=== PATIENT | female | born 1970 | race Caucasian/White ===

== ENCOUNTER 2017-10-28 01:12 | Emergency (ER) | payer MEDICAID ==
[2017-10-28] MEDS ORDERED: TDAP ADULT 0.5 ML INJ (BOOSTRIX) IM ONE (01:36)
--- NOTE | 2017-10-28 01:36 | EDPHY ---
H & P Time Seen by Provider: 10/28/17 01:18 HPI/ROS: Chief complaint: Finger laceration HPI: Sustained a laceration to the tip of the left index finger while cutting chicken with a kitchen knife. While the kitchen knife was clean for say she had been using it on raw chicken. Right Handed Injury of the left index, from kitchen knife that had been contaminated with raw poultry, chicken. This happened at home, occurring just ART PREPARATOR Reports there is no numbness or loss of sensation. 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 Well-nourished. No odor of alcohol. Nontoxic. Afebrile. Extremity: There is a 1 cm, linear laceration that is full thickness to the tip of the left index . Function: Without signs of tendon dysfunction NV Status: Intact CMS: Intact Constitutional: Initial Vital Signs Temperature (C) 36.7 C 10/28/17 01:27 Heart Rate 82 10/28/17 01:27 Respiratory Rate 14 10/28/17 01:27 Blood Pressure 164/95 H 10/28/17 01:27 O2 Sat (%) 92 10/28/17 01:27 O2 Delivery Mode Room Air Allergies/Adverse Reactions: adhesives Allergy (Uncoded 10/28/17 01:26) Home Medications: Medication Instructions Recorded Wellbutrin 100mg (*) 10/28/17 Zoloft 50mg (*) 10/28/17 Medical Decision Making Procedures: Procedure: Laceration repair. Laceration Repair: - Options presented to patient, consented to repair. - After skin prep with chloraseptic the wound was anesthesized with digital block with lidocaine 1 % without epinephrine - the wound was Cleansed with irrigation by Tech However, we had to stop at that point. She really was stressed out at the whole procedure and was feeling much more than typically in the digit itself. She had noted that she had gone through a very stressful time which also me became apparent that after a year's worth of Percocet therapy for her bad hip she was in a very dark place taking 4 months to wean. Nonetheless, she herself suggested Klonopin 0.5 mg, after initially declining Ativan, as that has worked in her past for her panic attack. That worked very well as well as a re-block of the finger as below: Reinfilltration of the left index finger in a ring block fashion with 0.5% Marcaine without epinephrine and a 15 min weight yielded excellent anesthesia. - The length of the wound was 1 cm.Inspection and exploration of the wound, with gloved finger and forceps, prior to closure revealed no evidence of foreign body and no involvement of deeper structures. - Closure was obtained using 5 0 nylon. - At the end of the procedure, wound edges were well approximated and hemostasis was achieved. - after the Klonopin and the additional digital block infiltration of 0.5% Marcaine, she tolerated procedure well. Differential Diagnosis: Diagnostic considerations include, but are not limited to, the following: Laceration, retained FB, tendon injury, fracture. - Data Points Medications Given: Discontinued Medications Clonazepam (Klonopin) 0.5 mg PO EDNOW ONE Stop: 10/28/17 02:00 Last Admin: 10/28/17 02:02 Dose: 0.5 mg Departure - Departure Disposition: Home, Routine, Self-Care Clinical Impression: Panic attack as reaction to stress Finger laceration Qualifiers: Encounter type: initial encounter Finger: index finger Damage to nail status: without damage Foreign body presence: without foreign body Laterality: left Qualified Code(s): S61.211A - Laceration without foreign body of left index finger without damage to nail, initial encounter Condition: Good Instructions: Laceration (ED) Additional Instructions: Keep the wound clean and dry. Wearing a bandage is best so as to pad the area. Sutures out in 8-9 days - that may be done here or at her family doctor's office.
[2017-10-28] MEDS ORDERED: clonazePAM 0.5 MG TAB PO ONE (01:59)
[2017-10-28 03:08] VITALS: BP 148/86
== END 2017-10-28 03:05 | disposition home or self-care (01) ==
LOC: CED 01:12
PROC: 0HQGXZZ Repair Left Hand Skin, External Approach (ICD-10-PCS; principal; 2017-10-28)
DX: S61.211A Laceration without foreign body of left index finger without damage to nail, initial encounter (principal); F41.0 Panic disorder [episodic paroxysmal anxiety]; Z23 Encounter for immunization; W26.0XXA Contact with knife, initial encounter; Y92.010 Kitchen of single-family (private) house as the place of occurrence of the external cause

== ENCOUNTER 2017-11-08 15:19 | Emergency (ER) | payer MEDICAID ==
--- NOTE | 2017-11-08 16:39 | EDPHY ---
H & P Time Seen by Provider: 11/08/17 15:46 HPI/ROS: This patient complains of panic attacks. She reports that she has intermittently had them over the last 10 or more years but has had increased frequency of panic attacks over the past 2 weeks. She was seen at [facility] last week for panic attack in the emergency department and she reports that she had normal electrolytes and TSH blood count at that time but does not have specific values. She attributes her increase frequency of panic attacks to increased social stressors recently related to ex and a custody marti. Here now in joint custody but she still feeling emotional stress from this. Also, her bilateral father is no longer in contact with family and she is upset by this. She is accompanied today by her mother who drove her here by private vehicle for further evaluation of her symptoms. She describes the panic attacks as feeling short of breath, feeling like her entire body is vibrating, accompanied with dyspnea at times agoraphobia. Her mother witnessed 1 of these episodes and states that it looks like she also hold her breath during the episode. ROS: No fevers or chills. No other constitutional symptoms HEENT: No URI symptoms Pulmonary: No respiratory distress. No pleuritic pain. No coughing. Cardiovascular: No chest pain or lightheadedness Neuro: No headache currently. She occasionally gets frontal headaches associated with anxiety but currently no headache. No numbness tingling focal weakness or confusion. GI: No abdominal pain. No nausea vomiting or diarrhea. : No complaints. Last menstrual period was normal timing 2 weeks ago. Psychiatric: As per HPI. 10 point ROS is otherwise negative. Past Medical/Surgical History: Mixed depression anxiety on Wellbutrin for the last 8 years in Zoloft in addition for the last for 5 years. They started Zoloft in addition because they did feel she was having significant benefit from Wellbutrin alone. Social History: She admits daily alcohol use -3 glasses of white wine per evening. Patient reports that for the past 6 months she has had marijuana in the evening on a daily basis in attempt to help with her anxiety and she reports that she is using hybrid of indica and sattiva No other drug use. She has a 7-year-old girl Bernadette with joint custody with her ex-. She is living with her mother an [place]. She is not currently working outside of the home . Smoking Status: Current every day smoker Physical Exam: Vital signs normal exception of hypertension 164/106 General Appearance: Pleasant 47-year-old female mildly obese Alert, no distress. Eyes: Pupils equal and round no pallor or injection. ENT, Mouth: Mucous membranes moist. Respiratory: There are no retractions, lungs are clear to auscultation. Cardiovascular: Regular rate and rhythm. No murmur gallop or rub Gastrointestinal: Abdomen is soft and nontender, no masses, bowel sounds normal. Neurological: GCS 15 with no focal deficits. Skin: Warm and dry, no rashes. Musculoskeletal: Neck is supple nontender. Extremities are symmetrical, full range of motion. Psychiatric: Mood and affect normal except for brief tearfulness wall describing her current social stressors. She maintains logical thought content. She has no pressured speech. No flight of ideas. No psychotic symptoms. She denies suicidal ideation or homicidal ideation. DIFFERENTIAL DIAGNOSIS: After history and physical exam differential diagnosis was considered for anxiety/panic, polysubstance abuse, doubt functional thyroid disease contributing to her symptoms given oral report of normal TSH last week. Constitutional: Initial Vital Signs Temperature (C) 99.5 C H 11/08/17 15:23 Heart Rate 89 11/08/17 15:23 Respiratory Rate 18 11/08/17 15:23 Blood Pressure 164/106 H 11/08/17 15:23 O2 Sat (%) 94 11/08/17 15:23 O2 Delivery Mode Room Air Allergies/Adverse Reactions: adhesives Allergy (Uncoded 11/08/17 15:38) Home Medications: Medication Instructions Recorded Wellbutrin 100mg (*) 10/28/17 Zoloft 50mg (*) 10/28/17 Propranolol HCl 20 - 40 mg PO BID PRN #30 tablet 11/08/17 Synthroid 11/08/17 MDM/Departure - MDM ED Course/Re-evaluation: We sent a request for medical records to [facility] from last week 's visit. These did not arrive in a timely fashion in not feel that information from last week's visit we significantly alter the course of today's plans. Discussion: Patient here with anxiety and panic and polysubstance abuse. I think that she may benefit from simplifying her antidepressant regimen given no suicidal ideation & a prevalence of anxious symptoms currently. I suggested she stop the Wellbutrin and only take the Zoloft. She had received a script for Ativan last weekend small number that she use this week with partial improvement but I think that she may benefit more from propranolol to be used for panic or anxiety dose of 20 mg to 40 mg twice daily p.r.n.. Also counseled her to significantly reduce her stop her marijuana and alcohol intake, start daily exercise daily relaxation, seek outpatient psychiatric follow-up and a local primary care physician. Currently no psychotic symptoms, no suicidal ideation or other red flag findings. - Depart Disposition: Home, Routine, Self-Care Clinical Impression: Panic attacks Condition: Good Instructions: Panic Attack (ED) Additional Instructions: Diagnosis: Panic attacks Plan: Consider stopping or significantly cutting back on marijuana use. Similarly, consider significant efficacy cut back on the 1 intake to 5 drinks or less weak with window of a few days of no alcohol. Daily exercise-vigorous aerobic type exercise for 30 min or more 5 days a week or more Daily relaxation for 20 min or more such as hot bath or other has discussed. Ultimately, you should quit smoking. For acute anxiety or panic episodes tried laying flat with your legs bent breathing into your belly as described. Also, propranolol as needed 1-2 tabs 2 times a day for acute anxiety or panic. Stop Wellbutrin. Continue Zoloft but consider cutting back the dose from current 100 mg 2 times a day to 150 mg a day total Follow-up with primary care physician Also follow up with Psychiatry as plan Return emergency department for any significant worsening despite the treatment plan. Prescriptions: Propranolol HCl 20 - 40 mg PO BID PRN #30 tablet PRN Reason: Anxiety Referrals: NONE *PRIMARY CARE P,. [Primary Care Provider] - As per Instructions Cecy Lemus MD [Medical Doctor] - As per Instructions [facility] [[facility]] - As per Instructions
[2017-11-08 17:06] VITALS: BP 160/109
== END 2017-11-08 17:03 | disposition home or self-care (01) ==
LOC: CED 15:19
DX: F41.0 Panic disorder [episodic paroxysmal anxiety] (principal); F17.200 Nicotine dependence, unspecified, uncomplicated

== ENCOUNTER 2018-03-28 16:40 | Emergency (ER) | payer MEDICAID, OTHER ==
--- NOTE | 2018-03-28 17:35 | EDPHY ---
H & P Time Seen by Provider: 03/28/18 16:41 HPI/ROS: CHIEF COMPLAINT: [] HISTORY OF PRESENT ILLNESS: [] REVIEW OF SYSTEMS: Contents of 10 point review of systems otherwise negative except for what is mentioned in HPI. General Appearance: Alert, no distress. Eyes: Pupils equal and round no icterus Respiratory: No respiratory distress Neurological: Awake, alert, no focal deficits. Skin: Warm and dry, no rashes. Musculoskeletal: Neck is supple nontender. Extremities are symmetrical, full range of motion, no edema. Psychiatric: Patient is oriented X 3, there is no agitation. Medical/surgical history: [ ] Social history: [ ] Smoking Status: Current every day smoker Constitutional: Initial Vital Signs Temperature (C) 36.6 C 03/28/18 17:06 Heart Rate 95 03/28/18 17:06 Respiratory Rate 20 03/28/18 17:06 Blood Pressure 180/112 H 03/28/18 17:06 O2 Sat (%) 97 03/28/18 17:06 O2 Delivery Mode Room Air Allergies/Adverse Reactions: adhesives Allergy (Uncoded 11/08/17 15:38) Home Medications: Medication Instructions Recorded Wellbutrin 100mg (*) 10/28/17 Zoloft 50mg (*) 10/28/17 Propranolol HCl 20 - 40 mg PO BID PRN #30 tablet 11/08/17 Synthroid 11/08/17 Acyclovir 400 mg PO TID 5 Days #15 tablet 03/28/18 Cephalexin [Keflex (*)] 500 mg PO Q6H #20 cap 03/28/18 Medical Decision Making - Data Points Point of Care Test Results: Urine Dip Collection Date 03/28/18 Collection Time 17:24 Specific [place] (1.002-1.030) 1.015 PH (5.0-7.5) 5.5 Leukocytes (Negative) Trace Nitrites (Negative) Negative Protein (Negative) Negative Glucose (Negative) Negative Ketones (Negative) Negative Urobilnogen (0.2-1.0 EU) 0.2 Bilirubin (Negative) Negative Blood (Negative) Negative Departure - Departure Clinical Impression: Herpes genitalis in women Condition: Good Instructions: Genital Herpes Simplex (ED) Referrals: NONE *PRIMARY CARE P,. [Primary Care Provider] - As per Instructions Prescriptions: Acyclovir 400 mg PO TID 5 Days #15 tablet Cephalexin [Keflex (*)] 500 mg PO Q6H #20 cap
[2018-03-28 17:56] VITALS: BP 181/89
== END 2018-03-28 17:54 | disposition home or self-care (01) ==
LOC: CED 16:40
DX: B00.9 Herpesviral infection, unspecified (principal)

== ENCOUNTER 2018-03-29 13:29 | Emergency (ER) | payer MEDICAID ==
[2018-03-29] MEDS ORDERED: ONDANSETRON DISINTEGRATING 4 MG TAB ONE (13:46)
[2018-03-29] MEDS ORDERED: ONDANSETRON DISINTEGRATING 4 MG TAB PO ONE (13:49)
--- NOTE | 2018-03-29 14:06 | EDPHY ---
H & P Time Seen by Provider: 03/29/18 14:02 HPI/ROS: Chief complaint. High blood pressure HPI. 47-year-old female seen yesterday in the emergency department for herpes outbreak but was noted to have elevated blood pressure at 180/112. She was told to keep an eye on it and she has a blood pressure cuff at home so she took her blood pressure this morning and found to be about 215 over (the patient is unsure of the lower number). She had a slight headache though she has been under quite a bit of stress. She has no chest discomfort or trouble breathing. No change in vision. She does not take medication for hypertension however frequently when she has her blood pressure checked it is elevated. She does take propranolol on a p.r.n. basis for anxiety. ROS Constitutional. High blood pressure Eyes. no problems with vision ENT. no sore throat, no nasal drainage Cardiovascular. no chest pain Respiratory. no shortness of breath, no cough Abdominal. no abdominal pain, no nausea/vomiting, no diarrhea . no problems urinating MS. no calf pain/swelling, no neck/back pain, no joint pain Skin. no rash Lymph. no swollen glands Neuro. Headache Past Medical/Surgical History: Bilateral hip replacements, depression, anxiety Social History: Single, daily smoker, no alcohol Smoking Status: Current every day smoker Physical Exam: General Appearance: Alert pleasant well-developed female mild distress. Initial blood pressure 202/97 Eyes: Pupils equal and round no pallor or injection. ENT, Mouth: Mucous membranes are moist. Respiratory: There are no retractions, lungs are clear to auscultation. Cardiovascular: Regular rate and rhythm. Gastrointestinal: Abdomen is soft and nontender, no masses, bowel sounds normal. Neurological: Awake and alert, sensory and motor exams grossly normal. Skin: Warm and dry, no rashes. Musculoskeletal: Neck is supple nontender. Extremities symmetrical, full range of motion. Psychiatric: Patient is oriented X 3, there is no agitation. Constitutional: Initial Vital Signs Temperature (C) 37.3 C 03/29/18 13:37 Heart Rate 70 03/29/18 13:37 Respiratory Rate 14 03/29/18 13:37 Blood Pressure 202/97 H 03/29/18 13:37 O2 Sat (%) 95 03/29/18 13:37 O2 Delivery Mode Room Air Allergies/Adverse Reactions: Opioids - Morphine Analogues Allergy (Verified 03/29/18 13:47) adhesives Allergy (Uncoded 03/29/18 13:47) Home Medications: Medication Instructions Recorded Zoloft 50mg (*) 10/28/17 Propranolol HCl 20 - 40 mg PO BID PRN #30 tablet 11/08/17 Synthroid 11/08/17 Acyclovir 400 mg PO TID 5 Days #15 tablet 03/28/18 Cephalexin [Keflex (*)] 500 mg PO Q6H #20 cap 03/28/18 Lisinopril 5 mg PO DAILY #20 tablet 03/29/18 Medical Decision Making ED Course/Re-evaluation: I reviewed past visits and patient's blood pressure yesterday on March 28 was 180/112. On November 08 she was seen and her blood pressure was 164/106 The patient and I discussed treatment plan including criteria for return and importance of follow-up and further evaluation. She expresses understanding and agreement. Differential Diagnosis: Patient likely has essential hypertension. She has had multiple visits with multiple elevated blood pressures. She has no evidence for end-organ involvement currently. - Data Points Medications Given: Discontinued Medications Ondansetron HCl (Zofran Odt) 4 mg PO EDNOW ONE Stop: 03/29/18 13:50 Last Admin: 03/29/18 13:49 Dose: 4 mg Departure - Departure Disposition: Home, Routine, Self-Care Clinical Impression: Hypertension Qualifiers: Hypertension type: essential hypertension Qualified Code(s): I10 - Essential ( primary) hypertension Condition: Good Instructions: Hypertension (ED) Additional Instructions: Continue regular medications. Lisinopril 1 pill daily. Keep a log of her blood pressure. Return for worsening symptoms. Repeat blood pressure and further evaluation by your regular physician in 5-7 days. Referrals: NONE *PRIMARY CARE P,. [Primary Care Provider] - As per Instructions [facility] [[facility]] - As per Instructions Cecy Lemus MD [Medical Doctor] - As per Instructions Prescriptions: Lisinopril 5 mg PO DAILY #20 tablet
[2018-03-29 14:11] VITALS: BP 153/99
== END 2018-03-29 14:36 | disposition home or self-care (01) ==
LOC: CED 13:29
DX: I10 Essential (primary) hypertension (principal); F17.200 Nicotine dependence, unspecified, uncomplicated; Z96.643 Presence of artificial hip joint, bilateral